=== PATIENT | female | born 1945 | race Caucasian/White ===

== ENCOUNTER → 2016-09-17 | Outpatient (CLI) | payer MEDICARE ==
--- NOTE | 2016-09-17 09:56 | CT ---
EXAMINATION TYPE: CT chest w con DATE OF EXAM: 09/17/2016 9:40 AM COMPARISON: NONE HISTORY: Difficulty breathing per patient. Chest pain and shortness of breath per order. Abnormal out side chest x-ray January DLP: 162.0 mGycm. Automated Exposure Control for Dose Reduction was Utilized. TECHNIQUE: CT scan of the thorax is performed following with IV Contrast, patient injected with 80 m L of Visipaque 320. FINDINGS: LUNGS: There is scarring in the lingula seen best on coronal image 22. There is additional slightly n odular scarring medially in both lower lobes. Some linear scarring or atelectasis medially in the rig ht middle lobe is also present. There is moderate biapical scarring and mild underlying emphysematous change. There is mild to moderate bronchiectasis posteriorly in the mid to lower lungs bilaterally. There is no pleural effusion or pneumothorax seen bilaterally. No concerning parenchymal mass is pr esent. MEDIASTINUM: There are no greater than 1 cm hilar or mediastinal lymph nodes. No pericardial effusi on is seen. A moderate size hiatal hernia is seen. Heart size is upper limits of normal. Coronary ar kenya calcification is noted proximal LAD. OTHER: Slight underlying scoliotic curvature is present. IMPRESSION: Chronic changes as detailed above. No suspicious acute pulmonary process. No worrisome ma ss or adenopathy clearly present.
== END | disposition home or self-care (01) ==
LOC: RADCTMAIN 08:18
PROVIDERS: ATTEND Family Medicine
DX: R07.9 Chest pain, unspecified (principal); R06.02 Shortness of breath
CPT/HCPCS: 82565; 84520; 71260; 36415; Q9967

== ENCOUNTER 2018-02-23 19:37 | Emergency (ER) | payer MEDICARE, OTHER ==
[2018-02-23 19:48] VITALS: BP 146/81; PULSE 70; RESP 16; TEMP 97.8
[2018-02-23] MEDS ORDERED: IBUPROFEN 800 MG TAB PO STA (20:45)
--- NOTE | 2018-02-23 21:26 | ED ---
Upper Extremity HPI - General Chief Complaint: Extremity Injury, Upper Stated Complaint: broken right arm-sent by [facility] Time Seen by Provider: 02/23/18 19:58 Source: patient Mode of arrival: ambulatory Limitations: no limitations - History of Present Illness Initial Comments: This is a 73-year-old female who fell earlier today was seen at [facility] and sent here for further evaluation for possible shoulder fracture. She has x- rays that were performed there is evidence of a fat pad sign on the right elbow is also a question of a fracture to the shoulder. No other complaints of any other injuries no loss of consciousness is a no head neck or back pain. MD Complaint: Injury to:: right, shoulder, elbow - Related Data Home Medications Medication Instructions Recorded Confirmed Atorvastatin [Lipitor] 10 mg PO DAILY 02/23/18 02/23/18 Hydrochlorothiazide [Hydrodiuril] 25 mg PO DAILY 02/23/18 02/23/18 Metoclopramide [Reglan] 5 mg PO QID 02/23/18 02/23/18 Phenylephrine HCl [Sudafed PE] 10 mg PO DAILY 02/23/18 02/23/18 Previous Rx's Medication Instructions Recorded Ibuprofen [Motrin] 600 mg PO Q6HR PRN #20 tab 02/23/18 Allergies Allergy/AdvReac Type Severity Reaction Status Date / Time codeine Allergy Confusion Verified 02/23/18 20:20 cyanocobalamin (vitamin B12) Allergy Rash/Hives Verified 02/23/18 20:20 Penicillins Allergy Unknown Verified 02/23/18 20:20 Childhood Sulfa (Sulfonamide Allergy Unknown Verified 02/23/18 20:20 Antibiotics) Childhood Review of Systems ROS Statement: Those systems with pertinent positive or pertinent negative responses have been documented in the HPI. ROS Other: All systems not noted in ROS Statement are negative. Past Medical History Past Medical History: Hyperlipidemia, Hypertension, Seizure Disorder History of Any Multi-Drug Resistant Organisms: None Reported Past Surgical History: Hysterectomy, Tonsillectomy Past Psychological History: No Psychological Hx Reported Smoking Status: Former smoker Past Alcohol Use History: None Reported Past Drug Use History: None Reported General Exam - General Exam Comments Initial Comments: This is a well-developed well-nourished awake alert oriented times 3 female with a Sarah Coma Scale of 15 Limitations: no limitations General appearance: alert, in no apparent distress Head exam: Present: atraumatic, normocephalic, normal inspection Eye exam: Present: normal appearance, PERRL, EOMI. Absent: scleral icterus, conjunctival injection, periorbital swelling ENT exam: Present: normal exam, mucous membranes moist Neck exam: Present: normal inspection. Absent: tenderness, meningismus, lymphadenopathy Respiratory exam: Absent: respiratory distress, wheezes, rales, rhonchi, stridor Cardiovascular Exam: Present: normal heart sounds. Absent: systolic murmur, diastolic murmur, rubs, gallop, clicks GI/Abdominal exam: Absent: distended, tenderness, guarding, rebound, rigid Extremities exam: Present: normal capillary refill, other (Is palpation over the right shoulder and over the right elbow). Absent: normal inspection, full ROM, tenderness, pedal edema, joint swelling, calf tenderness Back exam: Present: normal inspection Neurological exam: Present: alert, oriented X3, CN II-XII intact Psychiatric exam: Present: normal affect, normal mood Skin exam: Present: warm, dry, intact, normal color. Absent: rash Course Vital Signs 02/23/18 19:40 Temperature 97.8 F Pulse Rate 70 Respiratory 16 Rate Blood Pressure 146/81 O2 Sat by Pulse 97 Oximetry Medical Decision Making - Medical Decision Making I did discuss findings with patient and her family. Patient be discharged she has a mobilizer racial keep this on Motrin for pain follow-up with Dr. Merida who she has requested. - Radiology Data Radiology results: report reviewed (I did review the imaging from the outpatient clinic as well as the CAT scan. A patient including the x-ray showed no definite shoulder fracture though was a question of refracture or is evidence of a fat pad sign on the right elbow.), image reviewed Disposition Clinical Impression: Strain of shoulder, Fracture of radial head, right, closed Disposition: HOME SELF-CARE Condition: Good Instructions: Elbow Fracture (ED) Prescriptions: Ibuprofen [Motrin] 600 mg PO Q6HR PRN #20 tab PRN Reason: Pain Is patient prescribed a controlled substance at d/c from ED?: No Referrals: Avni Payton MD [Primary Care Provider] - 1-2 days
--- NOTE | 2018-02-23 21:31 | CT ---
EXAMINATION TYPE: CT shoulder RT wo con DATE OF EXAM: 02/23/2018 COMPARISON: None HISTORY: Right shoulder injury after fall CT DLP: 245.2 mGycm Automated exposure control for dose reduction was used. FINDINGS: The glenohumeral joint is anatomic. Proximal humerus appears intact. Scapula is intact. Visualized cl avicle appears intact. Joint spaces are fairly normal. There is no evidence of soft tissue mass. The visualized right upper ribs appear intact. There is minor spurring at the AC joint. IMPRESSION: NO ACUTE ABNORMALITY OF THE RIGHT SHOULDER. MILD SPURRING AT THE AC JOINT. THERE IS PROBABLY SOME SUB ACROMIAL IMPINGEMENT ON THE SUPRASPINATUS TENDON.
== END 2018-02-23 21:58 | disposition home or self-care (01) ==
LOC: EC 19:37
DX: S52.121A Displaced fracture of head of right radius, initial encounter for closed fracture (principal); S46.911A Strain of unspecified muscle, fascia and tendon at shoulder and upper arm level, right arm, initial encounter; E78.5 Hyperlipidemia, unspecified; I10 Essential (primary) hypertension; Z87.891 Personal history of nicotine dependence; Z79.899 Other long term (current) drug therapy; Z88.0 Allergy status to penicillin; Z88.2 Allergy status to sulfonamides; Z88.5 Allergy status to narcotic agent; Z88.8 Allergy status to other drugs, medicaments and biological substances; W01.0XXA Fall on same level from slipping, tripping and stumbling without subsequent striking against object, initial encounter; Y92.009 Unspecified place in unspecified non-institutional (private) residence as the place of occurrence of the external cause
CPT/HCPCS: 99284

== ENCOUNTER → 2020-02-16 | Outpatient (CLI) | payer MEDICARE, OTHER ==
--- NOTE | 2020-02-16 14:24 | BD ---
EXAMINATION TYPE: Axial Bone Density DATE OF EXAM: 02/16/2020 COMPARISON: NONE CLINICAL HISTORY: Height: 60 Weight: 138.5 FRAX RISK QUESTIONS: Alcohol (3 or more units per day): NO Family History (Parent hip fracture): no Glucocorticoids (More than 3mos): no (Ex: prednisone, prednisolone, methylprednisolone, dexamethasone, and hydrocortisone). History of Fracture in Adulthood: yes Secondary Osteoporosis: 1. Type 1 Diabetes: no 2. Hyperthyroidism: no 3. Menopause before 45: yes 4. Malnutrition: no 5. Chronic liver disease: no Rheumatoid Arthritis: no Current Tobacco Use: no RISK FACTORS HISTORY OF: History of Wrist Fracture: right When: long time ago Family History of Osteoporosis: no Active: no Diet low in dairy products/other sources of calcium: yes Postmenopausal woman: age 30 Lost more than 2 inches in height since high school: yes MEDICATIONS: blood pressure meds, sinus med Additional History: EXAM MEASUREMENTS: Bone mineral densitometry was performed using the [employer]. Bone mineral density as measured about the Lumbar spine is: ----- L1-L4(G/cm2): 0.933 T Score Values are as follows: ----- L2: -2.3 ----- L3: -1.5 ----- L4: -0.4 ----- L1-L4: -1.6 Bone mineral density : baseline Bone mineral density about the R hip (g/cm2): 0.767 Bone mineral density about the L hip (g/cm2): 0.726 T Score values are as follows: -----R Neck: -1.9 -----L Neck: -2.2 -----R Total: -1.8 -----L Total: -1.9 Bone mineral density : baseline IMPRESSION: Osteopenia (T Score between -2.5 and -1). There is slightly increased risk of fracture and the patient may be considered for treatment. Re-Screen 2-5 years. NOTE: T-SCORE=SD OF THE YOUNG ADULT MEAN.
== END | disposition home or self-care (01) ==
LOC: RADBDWWP 08:44
PROVIDERS: ATTEND Family Medicine
DX: M85.80 Other specified disorders of bone density and structure, unspecified site (principal); Z78.0 Asymptomatic menopausal state
CPT/HCPCS: 77080